=== PATIENT | male | born 1965 | race Caucasian/White ===

== ENCOUNTER → 2016-11-06 | Outpatient (CLI) | payer MEDICAID ==
[2016-11-06 08:50] LABS: Basophils % (A) 1 %; CH 32.2; Eosinophils # (A) 0.1 k/uL (0-0.7); Eosinophils % (A) 2 %; HCT 45.8 % (39.0-53.0); HDW 2.68; HGB 14.9 gm/dL (13.0-17.5); Luc # (Auto) 0.08; Luc % (Auto) 1; Lymphocytes # (A) 1.3 k/uL (1.0-4.8); Lymphocytes % (A) 22 %; MCH 31.1 pg (25.0-35.0); MCHC 32.6 g/dL (31.0-37.0); MCV 95.2 fL (80.0-100.0); Mean Platelet Volume 8.2; Monocytes # (A) 0.4 k/uL (0-1.0); Monocytes % (A) 7 %; Neutrophils # (A) 3.8 k/uL (1.3-7.7); Neutrophils % (A) 67 %; RBC 4.81 m/uL (4.30-5.90); RDW 14.5 % (11.5-15.5); WBC 5.6 k/uL (3.8-10.6); WBC (Perox) 5.55
[2016-11-06 10:00] LABS: Erythrocyte Sedimentation Rate 3 mm/hr (0-15)
[2016-11-06 10:55] LABS: ALT 41 U/L (21-72); AST 18 U/L (17-59); Alkaline Phosphatase 61 U/L (38-126); Anion Gap 12 mmol/L; Blood Urea Nitrogen 22 mg/dL (9-20); C Reactive Protein <5.0 mg/L (<10.0); Calcium 9.2 mg/dL (8.4-10.2); Carbon Dioxide 24 mmol/L (22-30); Chloride 104 mmol/L (98-107); Glucose 94 mg/dL (74-99); Non-African American GFR(MDRD) >60 (>60 ml/min/1.73 sqM); Potassium 4.7 mmol/L (3.5-5.1); Sodium 140 mmol/L (137-145); Total Bilirubin 0.6 mg/dL (0.2-1.3); Total Protein 7.4 g/dL (6.3-8.2)
== END | disposition home or self-care (01) ==
LOC: LABWHC1 08:02
PROVIDERS: ATTEND Internal Medicine Rheumatology
DX: G44.219 Episodic tension-type headache, not intractable (principal); M35.3 Polymyalgia rheumatica; M51.36 Other intervertebral disc degeneration, lumbar region; Z79.899 Other long term (current) drug therapy; Z98.1 Arthrodesis status
CPT/HCPCS: 36415; 80053; 85025; 85652; 86140

== ENCOUNTER → 2017-02-12 | Outpatient (CLI) | payer MEDICAID ==
[2017-02-12 16:46] LABS: Basophils % (A) 1 %; CHCM 34.7; Eosinophils # (A) 0.2 k/uL (0-0.7); Eosinophils % (A) 3 %; HCT 41.8 % (39.0-53.0); HDW 2.85; HGB 13.9 gm/dL (13.0-17.5); Luc # (Auto) 0.08; Luc % (Auto) 2; Lymphocytes # (A) 1.7 k/uL (1.0-4.8); Lymphocytes % (A) 35 %; MCH 31.9 pg (25.0-35.0); MCHC 33.4 g/dL (31.0-37.0); MCV 95.8 fL (80.0-100.0); Mean Platelet Volume 7.4; Monocytes # (A) 0.2 k/uL (0-1.0); Monocytes % (A) 4 %; Neutrophils # (A) 2.7 k/uL (1.3-7.7); Neutrophils % (A) 55 %; RBC 4.36 m/uL (4.30-5.90); RDW 14.2 % (11.5-15.5); WBC 4.8 k/uL (3.8-10.6); WBC (Perox) 5.04
[2017-02-12 17:00] LABS: ALT 28 U/L (21-72); AST 20 U/L (17-59); Alkaline Phosphatase 60 U/L (38-126); Anion Gap 10 mmol/L; Blood Urea Nitrogen 13 mg/dL (9-20); C Reactive Protein <5.0 mg/L (<10.0); Calcium 9.1 mg/dL (8.4-10.2); Carbon Dioxide 24 mmol/L (22-30); Chloride 108 mmol/L (98-107); Glucose 84 mg/dL (74-99); Non-African American GFR(MDRD) >60 (>60 ml/min/1.73 sqM); Potassium 4.1 mmol/L (3.5-5.1); Sodium 142 mmol/L (137-145); Total Bilirubin 0.8 mg/dL (0.2-1.3)
[2017-02-12 20:25] LABS: Erythrocyte Sedimentation Rate 7 mm/hr (0-15)
== END | disposition home or self-care (01) ==
LOC: LABWHC1 16:29
PROVIDERS: ATTEND Internal Medicine Rheumatology
DX: M35.3 Polymyalgia rheumatica (principal); Z79.899 Other long term (current) drug therapy
CPT/HCPCS: 36415; 80053; 85025; 85652; 86140

== ENCOUNTER → 2017-03-27 | Outpatient (CLI) | payer MEDICAID ==
--- NOTE | 2017-03-28 10:53 | MR ---
EXAMINATION TYPE: MR shoulder RT wo con DATE OF EXAM: 03/27/2017 COMPARISON: NONE HISTORY: Pain in right shoulder TECHNIQUE: Multiplanar, multisequence imaging of the right shoulder is performed without contrast. FINDINGS: Rotator Cuff: Abnormal increased signal present within the rotator cuff, partial full-thickness tear is suspected anteriorly. There is abnormal thickening of the rotator cuff, tendinosis. Acromioclavicular Joint: Hypertrophic change at the acromioclavicular joint is present, there is arth ropathy with mass effect on the musculotendinous junction of supraspinatus. Distal acromial spur is p resent. Glenohumeral Joint: Intact, there is marginal spurring of the humeral head Labrum: Abnormal increased signal present within the superior glenoid labrum, findings may be indicat yovany of SLAP lesion Biceps Tendon: The long head of biceps is in normal location within bicipital groove. Bone marrow signal: Pseudocysts present within the humeral head. Other: Fluid signal present in the subacromial subdeltoid bursa. IMPRESSION: Correlate for impingement. Suspicious or partial full-thickness tear of the rotator cuff anteriorly. Additional findings above.
== END | disposition home or self-care (01) ==
LOC: RADMRIMAIN 17:26
PROVIDERS: ATTEND Orthopaedic Surgery
DX: M75.41 Impingement syndrome of right shoulder (principal); M25.511 Pain in right shoulder; M65.811 Other synovitis and tenosynovitis, right shoulder; M19.011 Primary osteoarthritis, right shoulder; M75.81 Other shoulder lesions, right shoulder

== ENCOUNTER → 2017-05-25 | Outpatient (CLI) | payer MEDICAID ==
[2017-05-25 16:18] LABS: Basophils % (A) 1 %; CH 33.5; CHCM 34.6; Eosinophils # (A) 0.2 k/uL (0-0.7); Eosinophils % (A) 3 %; HCT 42.4 % (39.0-53.0); HDW 2.83; HGB 14.3 gm/dL (13.0-17.5); Luc # (Auto) 0.12; Luc % (Auto) 2; Lymphocytes # (A) 2.1 k/uL (1.0-4.8); Lymphocytes % (A) 35 %; MCH 32.8 pg (25.0-35.0); MCHC 33.7 g/dL (31.0-37.0); MCV 97.4 fL (80.0-100.0); Mean Platelet Volume 7.7; Monocytes # (A) 0.3 k/uL (0-1.0); Monocytes % (A) 4 %; Neutrophils # (A) 3.2 k/uL (1.3-7.7); Neutrophils % (A) 55 %; RBC 4.36 m/uL (4.30-5.90); RDW 15.1 % (11.5-15.5); WBC 5.9 k/uL (3.8-10.6); WBC (Perox) 6.25
[2017-05-25 16:34] LABS: ALT 37 U/L (21-72); AST 18 U/L (17-59); Alkaline Phosphatase 66 U/L (38-126); Anion Gap 11 mmol/L; Blood Urea Nitrogen 16 mg/dL (9-20); C Reactive Protein <5.0 mg/L (<10.0); Calcium 9.1 mg/dL (8.4-10.2); Carbon Dioxide 22 mmol/L (22-30); Chloride 108 mmol/L (98-107); Glucose 80 mg/dL (74-99); Non-African American GFR(MDRD) >60 (>60 ml/min/1.73 sqM); Potassium 4.3 mmol/L (3.5-5.1); Sodium 141 mmol/L (137-145); Total Bilirubin 0.6 mg/dL (0.2-1.3); Total Protein 6.7 g/dL (6.3-8.2)
[2017-05-25 18:39] LABS: Erythrocyte Sedimentation Rate 6 mm/hr (0-15)
== END | disposition home or self-care (01) ==
LOC: LABWHC1 16:00
PROVIDERS: ATTEND Internal Medicine Rheumatology
DX: M35.3 Polymyalgia rheumatica (principal); G44.219 Episodic tension-type headache, not intractable; M75.81 Other shoulder lesions, right shoulder; M51.36 Other intervertebral disc degeneration, lumbar region; Z51.81 Encounter for therapeutic drug level monitoring
CPT/HCPCS: 36415; 80053; 85025; 85652; 86140

== ENCOUNTER → 2017-10-22 | Outpatient (CLI) | payer MEDICAID ==
[2017-10-22 08:07] LABS: Basophils # (A) 0.1 k/uL (0-0.2); Basophils % (A) 1 %; Eosinophils # (A) 0.2 k/uL (0-0.7); Eosinophils % (A) 2 %; HCT 45.1 % (39.0-53.0); HGB 14.4 gm/dL (13.0-17.5); Lymphocytes # (A) 1.4 k/uL (1.0-4.8); Lymphocytes % (A) 13 %; MCH 31.4 pg (25.0-35.0); MCV 98.2 fL (80.0-100.0); Macrocytosis Slight; Mean Platelet Volume 7.9; Monocytes # (A) 0.6 k/uL (0-1.0); Monocytes % (A) 6 %; Neutrophils # (A) 8.4 k/uL (1.3-7.7); Neutrophils % (A) 78 %; Platelet Count 229 k/uL (150-450); RBC 4.59 m/uL (4.30-5.90); RDW 15.8 % (11.5-15.5); WBC 10.7 k/uL (3.8-10.6)
[2017-10-22 09:20] LABS: Erythrocyte Sedimentation Rate 8 mm/hr (0-15)
[2017-10-22 09:52] LABS: ALT 40 U/L (21-72); AST 18 U/L (17-59); Albumin 4.3 g/dL (3.5-5.0); Alkaline Phosphatase 64 U/L (38-126); Anion Gap 10 mmol/L; Blood Urea Nitrogen 17 mg/dL (9-20); C Reactive Protein 16.8 mg/L (<10.0); Calcium 9.3 mg/dL (8.4-10.2); Carbon Dioxide 25 mmol/L (22-30); Chloride 105 mmol/L (98-107); Glucose 97 mg/dL (74-99); Potassium 4.6 mmol/L (3.5-5.1); Sodium 140 mmol/L (137-145); Total Bilirubin 0.4 mg/dL (0.2-1.3); Total Protein 7.1 g/dL (6.3-8.2)
== END | disposition home or self-care (01) ==
LOC: LABWHC1 07:49
PROVIDERS: ATTEND Internal Medicine Rheumatology
DX: Z00.01 Encounter for general adult medical examination with abnormal findings (principal); M35.3 Polymyalgia rheumatica; G44.031 Episodic paroxysmal hemicrania, intractable; M12.811 Other specific arthropathies, not elsewhere classified, right shoulder; Z12.5 Encounter for screening for malignant neoplasm of prostate; Z98.1 Arthrodesis status
CPT/HCPCS: 80053; 85652; 85025; 86140; 36415; G0103

== ENCOUNTER → 2017-11-18 | Outpatient (CLI) | payer MEDICAID ==
--- NOTE | 2017-11-18 15:23 | XR ---
EXAMINATION TYPE: XR chest 2V DATE OF EXAM: 11/18/2017 COMPARISON: 10/22/2012 TECHNIQUE: PA and lateral views submitted. HISTORY: Cough FINDINGS: The lungs are clear and there is no pneumothorax, pleural effusion, or focal pneumonia. Hypertrophi c and degenerative change of the spine noted. IMPRESSION: 1. No acute process.
== END | disposition home or self-care (01) ==
LOC: RADXRMAIN 15:04
PROVIDERS: ATTEND Nurse Practitioner Family
DX: R05 Cough (principal)
CPT/HCPCS: 71046

== ENCOUNTER → 2017-12-09 | Outpatient (CLI) | payer MEDICAID ==
--- NOTE | 2017-12-09 21:40 | CT ---
EXAMINATION TYPE: CT chest w con DATE OF EXAM: 12/09/2017 COMPARISON: CT chest January 14, 2013. Two-view chest x-ray November 18, 2017. HISTORY: cough and shortness of breath for [address] DLP: 495.6 mGycm. Automated Exposure Control for Dose Reduction was Utilized. TECHNIQUE: CT scan of the thorax is performed following with IV Contrast, patient injected with 100 mL of Omnipaque 300. FINDINGS: LUNGS: There is mild posterior left apical scarring on axial image 12 now seen. There are stable 4 mm lateral right upper lobe nodule axial image [address] There is dependent atelectasi s and/or some linear scarring posteriorly in both lower lobes. No new nodule or mass is present. Ther e is focal linear scarring or atelectasis in the lingula near diaphragm. No pleural effusion or pneum othorax is identified. Tracheobronchial tree is patent. MEDIASTINUM: There are no greater than 1 cm hilar or mediastinal lymph nodes. No pericardial effusi on is seen. Heart size is upper limits of normal. OTHER: There are stable small hiatal hernia. There is fairly prominent spurring and disc space narrow ing with vacuum disc phenomenon in the visualized upper lumbar spine. IMPRESSION: Stable 4 mm right upper lobe nodule essentially benign or postinflammatory in etiology gi mario near five-year stability. No new suspicious nodules or adenopathy identified.
== END | disposition home or self-care (01) ==
LOC: RADCTMAIN 07:59
PROVIDERS: ATTEND Nurse Practitioner Family
DX: R91.1 Solitary pulmonary nodule (principal); R05 Cough; R06.02 Shortness of breath
CPT/HCPCS: 71260; Q9967

== ENCOUNTER → 2018-01-21 | Outpatient (CLI) | payer MEDICAID ==
[2018-01-21 07:22] LABS: Basophils % (A) 0 %; Eosinophils # (A) 0.2 k/uL (0-0.7); Eosinophils % (A) 4 %; HGB 14.1 gm/dL (13.0-17.5); Lymphocytes # (A) 1.4 k/uL (1.0-4.8); Lymphocytes % (A) 25 %; MCH 31.7 pg (25.0-35.0); MCHC 34.4 g/dL (31.0-37.0); MCV 92.3 fL (80.0-100.0); Mean Platelet Volume 7.4; Monocytes # (A) 0.4 k/uL (0-1.0); Monocytes % (A) 7 %; Neutrophils # (A) 3.6 k/uL (1.3-7.7); Neutrophils % (A) 62 %; Platelet Count 225 k/uL (150-450); RBC 4.44 m/uL (4.30-5.90); RDW 14.4 % (11.5-15.5); WBC 5.8 k/uL (3.8-10.6)
[2018-01-21 10:03] LABS: ALT 48 U/L (21-72); AST 26 U/L (17-59); Albumin 4.1 g/dL (3.5-5.0); Alkaline Phosphatase 69 U/L (38-126); Anion Gap 13 mmol/L; Blood Urea Nitrogen 15 mg/dL (9-20); C Reactive Protein 6.9 mg/L (<10.0); Calcium 9.2 mg/dL (8.4-10.2); Carbon Dioxide 24 mmol/L (22-30); Chloride 106 mmol/L (98-107); Glucose 106 mg/dL (74-99); Potassium 4.6 mmol/L (3.5-5.1); Sodium 143 mmol/L (137-145); Total Bilirubin 0.2 mg/dL (0.2-1.3); Total Protein 6.6 g/dL (6.3-8.2)
[2018-01-21 10:10] LABS: Erythrocyte Sedimentation Rate 6 mm/hr (0-15)
== END | disposition home or self-care (01) ==
LOC: LABWHC1 06:41
PROVIDERS: ATTEND Internal Medicine Rheumatology
DX: M35.3 Polymyalgia rheumatica (principal); M12.811 Other specific arthropathies, not elsewhere classified, right shoulder; Z51.81 Encounter for therapeutic drug level monitoring
CPT/HCPCS: 36415; 80053; 85025; 85652; 86140

== ENCOUNTER → 2018-09-08 | Outpatient (CLI) | payer MEDICAID ==
[2018-09-08 07:32] LABS: Basophils % (A) 1 %; Eosinophils # (A) 0.2 k/uL (0-0.7); Eosinophils % (A) 5 %; HCT 43.6 % (39.0-53.0); Lymphocytes % (A) 45 %; MCH 30.1 pg (25.0-35.0); Mean Platelet Volume 7.2; Monocytes # (A) 0.4 k/uL (0-1.0); Monocytes % (A) 9 %; Neutrophils # (A) 1.7 k/uL (1.3-7.7); Neutrophils % (A) 37 %; Platelet Count 214 k/uL (150-450); RBC 4.64 m/uL (4.30-5.90); RDW 13.3 % (11.5-15.5); WBC 4.4 k/uL (3.8-10.6)
[2018-09-08 09:42] LABS: Erythrocyte Sedimentation Rate 4 mm/hr (0-15)
[2018-09-08 12:25] LABS: ALT 19 U/L (10-49); AST 17 U/L (14-35); Albumin/Globulin Ratio 2.33 (1.20-2.10); Alkaline Phosphatase 71 U/L (41-126); C Reactive Protein <0.4 mg/dL (0.0-0.8); Calcium 8.9 mg/dL (8.7-10.3); Carbon Dioxide 24.4 mmol/L (21.6-31.8); Chloride 109 mmol/L (96-109); Globulin 1.8 g/dL (2.1-3.7); Glucose 103 mg/dL (70-110); Potassium 4.4 mmol/L (3.5-5.5); Sodium 140 mmol/L (135-145); Total Bilirubin 0.2 mg/dL (0.3-1.2)
== END | disposition home or self-care (01) ==
LOC: LABWHC1 06:41
PROVIDERS: ATTEND Internal Medicine Rheumatology
DX: M35.3 Polymyalgia rheumatica (principal); M12.811 Other specific arthropathies, not elsewhere classified, right shoulder; M51.36 Other intervertebral disc degeneration, lumbar region; H91.93 Unspecified hearing loss, bilateral
CPT/HCPCS: 36415; 80053; 85025; 85652; 86140

== ENCOUNTER → 2018-11-25 | Outpatient (CLI) | payer MEDICAID ==
[2018-11-25 07:09] LABS: Basophils % (A) 1 %; Eosinophils # (A) 0.2 k/uL (0-0.7); Eosinophils % (A) 4 %; HCT 43.5 % (39.0-53.0); HGB 14.7 gm/dL (13.0-17.5); Lymphocytes # (A) 1.6 k/uL (1.0-4.8); Lymphocytes % (A) 36 %; MCH 32.1 pg (25.0-35.0); MCHC 33.8 g/dL (31.0-37.0); Mean Platelet Volume 7.4; Monocytes # (A) 0.3 k/uL (0-1.0); Monocytes % (A) 8 %; Neutrophils # (A) 2.1 k/uL (1.3-7.7); Neutrophils % (A) 50 %; Platelet Count 229 k/uL (150-450); RBC 4.58 m/uL (4.30-5.90); RDW 13.8 % (11.5-15.5); WBC 4.3 k/uL (3.8-10.6)
[2018-11-25 09:03] LABS: Erythrocyte Sedimentation Rate 11 mm/hr (0-15)
[2018-11-25 12:33] LABS: Albumin 4.4 g/dL (3.80-4.90); C Reactive Protein 0.9 mg/dL (0.0-0.8); Calcium 8.9 mg/dL (8.7-10.3); Globulin 2.2 g/dL (1.6-3.3); LDL Cholesterol,Calculated 187.8 mg/dL (0.0-131.0); Potassium 4.3 mmol/L (3.5-5.5); Total Bilirubin 0.2 mg/dL (0.3-1.2); Total Protein 6.6 g/dL (6.2-8.2); VLDL Calculation 21.2 mg/dL (5.00-40.00)
== END | disposition home or self-care (01) ==
LOC: LABWHC1 06:42
PROVIDERS: ATTEND Family Medicine
DX: Z00.01 Encounter for general adult medical examination with abnormal findings (principal); M35.3 Polymyalgia rheumatica; E78.2 Mixed hyperlipidemia; Z12.5 Encounter for screening for malignant neoplasm of prostate; Z91.030 Bee allergy status
CPT/HCPCS: 80061; 80053; 85652; 85025; 86140; 36415; G0103

== ENCOUNTER 2019-08-23 11:36 | Day surgery (SDC) | payer MEDICAID ==
[2019-08-18 12:35] VITALS: BMI 24.0
[~2019-08-23 11:36] MED LIST: LACTATED RINGERS 1,000 ML IV SCH
[2019-08-23 11:55] VITALS: TEMP 97.4
[2019-08-23] MEDS ORDERED: LIDOCAINE 1% 20 ML VIAL (10MG/ML) FOR IV START INTRADERMA ONE (11:58)
[2019-08-23] MEDS ORDERED: LIDOCAINE 1% INJ 10MG/ML (20 ML MDV) ONE (13:07)
[2019-08-23] MEDS ORDERED: PROPOFOL 10 MG/ML 20 ML VIAL IV ONE (13:07)
--- NOTE | 2019-08-23 13:45 | P.PCN ---
Date of Procedure: 08/23/19 Description of Procedure: BRIEF HISTORY: Patient is a 54-year-old, pleasant, male with a known history of gastroesophageal reflux disease and Brito's esophagus initially diagnosed in 2014 who was seen in the outpatient setting for complaints of heartburn and intermittent dysphagia to dry solid foods as well as the sensation of globus. The patient had been off of omeprazole therapy since 2014 and was reinitiated approximately one month ago. He continues to have symptoms. PROCEDURE PERFORMED: Esophagogastroduodenoscopy with biopsy. PREOPERATIVE DIAGNOSIS: GERD, Brito's esophagus, esophageal dysphagia. ESTIMATED BLOOD LOSS: Minimal. IV sedation per anesthesia. PROCEDURE: After informed consent was obtained, the patient was brought into the endoscopy unit. IV sedation was administered by Anesthesia under continuous monitoring. Initially the Olympus GIF-190 video endoscope was inserted into the mouth. Esophagus intubated without any difficulty. It was gradually advanced into the stomach and duodenum and carefully examined. The bulb and the second part of the duodenum appeared normal, with biopsies taken. The scope at this time was withdrawn to the stomach, adequately insufflated with air, and upon careful examination, mucosa of the antrum, body, cardia and the fundus appeared grossly normal except for some patchy erythema in the antrum suggestive of mild antritis with biopsies of the antrum and body taken. The scope was then withdrawn into the esophagus. The GE junction was located at 39 cm from the incisors with a 2 cm hiatal hernia noted. 3 cm of salmon-colored mucosa consistent with prior history of Brito's esophagus noted in the distal esophagus which was vigorously biopsied. A small 1 cm esophageal nodule approximately 36 cm from the incisors was noted and biopsied. The esophagus otherwise appeared normal. The patient tolerated the procedure well. IMPRESSION: 1. Brito's esophagus, distal esophagus biopsied. 2. Distal esophageal nodule approximately 36 cm from the incisors biopsied. 3. Mild gastritis antrum body biopsy 4. Biopsies of the duodenum. 5. Small hiatal hernia. RECOMMENDATIONS: The findings of this examination were discussed with the patient and his . Okay to resume diet and medications. Continue omeprazole therapy. Await pathology from biopsies. Follow up in gastroenterology clinic as previously scheduled. Pending pathology patient may require referral to tertiary center for further intervention by the advanced endoscopy service.
[2019-08-23 13:58] VITALS: BP 117/77; PULSE 63; RESP 20
== END 2019-08-23 14:10 | disposition home or self-care (01) ==
LOC: ORWHC2ENDO 11:36
PROVIDERS: ATTEND Internal Medicine
DX: K22.70 Barrett's esophagus without dysplasia (principal); K29.51 Unspecified chronic gastritis with bleeding; K44.9 Diaphragmatic hernia without obstruction or gangrene; K21.9 Gastro-esophageal reflux disease without esophagitis; E78.5 Hyperlipidemia, unspecified; M19.90 Unspecified osteoarthritis, unspecified site; H91.90 Unspecified hearing loss, unspecified ear; Z87.891 Personal history of nicotine dependence; Z79.899 Other long term (current) drug therapy; Z87.81 Personal history of (healed) traumatic fracture; Z98.890 Other specified postprocedural states
CPT/HCPCS: 88305; 43239; J2001; J2704

== ENCOUNTER → 2019-11-17 | Outpatient (CLI) | payer MEDICAID ==
[2019-11-17 15:36] LABS: Thyroid Peroxidase Antibodies 30.9 U/mL (0.0-60.0)
[2019-11-17 16:21] LABS: C Reactive Protein <0.4 mg/dL (0.0-0.8); Rheumatoid Factor, Qnt 6 IU/mL (0-15)
[2019-11-17 16:57] LABS: Anti-DNA, DS unit <1.0 IU/mL; Anti-Smith Ab Interp NEGATIVE (NEGATIVE); Cyclic Citrull Pep IgG Unit 0.7 U/mL; Cyclic Citrullinated Pep IgG NEGATIVE (NEGATIVE); DNA Double-Stranded NEGATIVE (NEGATIVE)
[2019-11-18 13:14] LABS: C-ANCA <1:20 Titer (<1:20)
== END | disposition home or self-care (01) ==
LOC: LABWHC1 10:44
PROVIDERS: ATTEND Internal Medicine Rheumatology
DX: M25.50 Pain in unspecified joint (principal); M25.511 Pain in right shoulder; G89.29 Other chronic pain; Z87.39 Personal history of other diseases of the musculoskeletal system and connective tissue
CPT/HCPCS: 36415; 85652; 86038; 86140; 86160; 86200; 86225; 86235; 86255; 86376; 86431; 86800

== ENCOUNTER → 2019-11-17 | Outpatient (CLI) | payer MEDICAID ==
--- NOTE | 2019-11-17 12:15 | XR ---
EXAMINATION TYPE: XR hand complete bilateral DATE OF EXAM: 11/17/2019 CLINICAL HISTORY: Polyarthralgia TECHNIQUE: Frontal, lateral and oblique images of the bilateral hands were obtained. COMPARISON: Bilateral hand x-rays dated 03/25/2016 FINDINGS: There is no acute fracture/dislocation evident in either hand. Old healed fracture deformi ty of the fifth metacarpal the right hand is again seen. Mild progression in degree of arthropathy of the third distal interphalangeal joints bilaterally with joint space narrowing and small marginal os teophytes. Changes are now seen in the second distal interphalangeal joint bilaterally as well as the fifth right proximal interphalangeal joint. On the right there is blunting of the ulnar styloid that appears new from the prior. Osteophytic spurring and slight narrowing of the first metacarpal phalan geal joints bilaterally are also redemonstrated. The joint spaces in the both hand appear aligned. T he overlying soft tissue appears unremarkable. IMPRESSION 1. Mild progression in arthropathy of the third distal interphalangeal joints and first carpometacarp al joints of the hands bilaterally now involvement of the second distal interphalangeal joints bilate rally, right ulnar styloid, and fifth proximal interphalangeal joint. Distribution may be seen on the basis of mixed arthropathy as the majority of the involved joints indicate osteoarthropathy however the blunting of the radial styloid on the right raises suspicion for rheumatoid arthropathy. 2. No acute fracture or dislocation in either hand.
--- NOTE | 2019-11-17 12:21 | XR ---
EXAMINATION TYPE: XR shoulder limited LT DATE OF EXAM: 11/17/2019 CLINICAL HISTORY: Left shoulder pain TECHNIQUE: 2 views of the left shoulder are obtained. COMPARISON: None. FINDINGS: There is no acute fracture/dislocation evident in the left shoulder. The acromioclavicula r and glenohumeral joint spaces appear within normal limits. The visualized ribs are intact and unre markable. IMPRESSION: There is no acute fracture or dislocation in the left shoulder.
--- NOTE | 2019-11-17 12:25 | XR ---
EXAMINATION TYPE: XR knee complete bilateral DATE OF EXAM: 11/17/2019 CLINICAL HISTORY: Polyarthropathy. TECHNIQUE: Three views of the bilateral knees were obtained. COMPARISON: None. FINDINGS: There is no acute fracture/dislocation evident in either knee. There is medial compartment joint space narrowing of the left knee with small the tricompartmental marginal osteophytes on the l eft and bicompartmental on the right involving the lateral and patellofemoral compartments. Hyperdens e fragments are seen of the lateral and anterior soft tissues (3 in number measuring up to 3 mm) on t he right. Prior ACL repair is seen on the left. No sizable suprapatellar joint effusion bilaterally. Extensor mechanism is grossly intact radiographically. IMPRESSION: 1. Moderate tricompartmental arthropathy in the left and mild on the right. 2. No acute fracture or dislocation in either knee. 3. There are 3 punctate radiopaque densities in the anterior lateral subcutaneous tissues at the infe rior margin of the right patella that could represent small foreign bodies.
== END | disposition home or self-care (01) ==
LOC: RADXRMAIN 11:00
PROVIDERS: ATTEND Internal Medicine Rheumatology
DX: M25.512 Pain in left shoulder (principal); M12.841 Other specific arthropathies, not elsewhere classified, right hand; M12.862 Other specific arthropathies, not elsewhere classified, left knee; M12.861 Other specific arthropathies, not elsewhere classified, right knee

== ENCOUNTER → 2019-12-08 | Outpatient (CLI) | payer MEDICAID ==
--- NOTE | 2019-12-08 07:18 | XR ---
EXAMINATION TYPE: XR sacroiliac joint comp BILAT DATE OF EXAM: 12/08/2019 CLINICAL HISTORY: Bilateral pelvic pain TECHNIQUE: 3 views of the bilateral sacroiliac joints were obtained. COMPARISON: 03/25/2016 FINDINGS: There is no acute fracture/dislocation evident in the visualized portions of the pelvis. T here is surgical fusion of the lumbosacral junction. Sacroiliac joints are symmetric. Very mild iliac sided sclerosis. No sacroiliac joint space widening. Minimal degenerative change of the hips. IMPRESSION: There is no acute fracture or dislocation in the visualized pelvis. Mild symmetric arthr opathy of the sacroiliac joints.
== END | disposition home or self-care (01) ==
LOC: RADXRMAIN 06:26
PROVIDERS: ATTEND Internal Medicine Rheumatology
DX: M12.852 Other specific arthropathies, not elsewhere classified, left hip (principal); M12.851 Other specific arthropathies, not elsewhere classified, right hip
CPT/HCPCS: 72202

== ENCOUNTER → 2020-02-15 | Outpatient (CLI) | payer MEDICAID | END | disposition home or self-care (01) | LOC: LABWHC1 08:35 | PROVIDERS: ATTEND Internal Medicine Cardiovascular Disease | DX: U07.1 COVID-19 (principal) | CPT/HCPCS: 87635 ==

== ENCOUNTER → 2020-02-17 | Day surgery (SDC) | payer MEDICAID ==
[2020-02-15 14:24] VITALS: BMI 33.7
[~2020-02-17] MED LIST changes: +ALPRAZolam 0.25 MG TAB PO PRN; +ALPRAZolam 0.5 MG TAB PO PRN; +ASPIRIN 325 MG TAB PO ONE; +ATORVASTATIN 80 MG TAB PO ONE; +HEPARIN SODIUM 1,000 UN/ML (10ML VL) IV ONE; +IOPAMIDOL-370 125ML BTL INJ ONE; -LACTATED RINGERS 1,000 ML IV SCH; +LIDOCAINE 1% INJ 10MG/ML (20 ML MDV) SQ ONE; +MIDAZOLAM 2 MG/2 ML VIAL IV ONE; +NITROGLYCERIN SL TABS 0.4 MG TAB SUBLINGUAL PRN; +RX INFO: IV CONTRAST WAS GIVEN 1 EACH MISC MISCELLANE PRN; +SODIUM CHLORIDE 0.9% 1,000 ML IV ONE; +SODIUM CHLORIDE 0.9% 1,000 ML IV SCH; +SODIUM CHLORIDE 0.9% 1,000 ML in EMPTY BAG 1 BAG IV ONE; +VERAPAMIL SYRINGE (5 MG/10 ML) INTRAARTER ONE; +fentaNYL (PF) 50 MCG/ML 2 ML AMP IV ONE
[2020-02-17 06:51] VITALS: RESP 16; TEMP 97.7
[2020-02-17 07:16] LABS: Basophils % (A) 1 %; Eosinophils # (A) 0.2 k/uL (0-0.7); Eosinophils % (A) 4 %; HCT 43.5 % (39.0-53.0); HGB 14.7 gm/dL (13.0-17.5); Lymphocytes # (A) 1.8 k/uL (1.0-4.8); Lymphocytes % (A) 32 %; MCH 31.8 pg (25.0-35.0); MCHC 33.8 g/dL (31.0-37.0); Mean Platelet Volume 8.4; Monocytes # (A) 0.3 k/uL (0-1.0); Monocytes % (A) 6 %; Neutrophils # (A) 3.1 k/uL (1.3-7.7); Neutrophils % (A) 56 %; Platelet Count 211 k/uL (150-450); RBC 4.63 m/uL (4.30-5.90); RDW 13.4 % (11.5-15.5); WBC 5.6 k/uL (3.8-10.6)
[2020-02-17 07:21] LABS: African American GFR (CKD) >90 (>60 ml/min/1.73 sqM); Anion Gap 7 mmol/L; Blood Urea Nitrogen 18 mg/dL (9-20); Carbon Dioxide 24 mmol/L (22-30); Chloride 108 mmol/L (98-107); Glucose 105 mg/dL (74-99); Non-African American GFR(CKD) >90 (>60 ml/min/1.73 sqM); Sodium 139 mmol/L (137-145)
[2020-02-17 07:28] LABS: Potassium 4.5 mmol/L (3.5-5.1)
--- NOTE | 2020-02-17 08:25 | P.CARDCATH ---
Date of Procedure: 02/17/20 Preoperative Diagnosis: Chest pain and positive stress test Postoperative Diagnosis: Minimal coronary artery disease Procedure(s) Performed: Left heart catheterization without left ventriculography Description of Procedure: HISTORY: This is a 54-year-old gentleman with history of smoking and family history of ischemic heart disease and has been experiencing chest and shoulder pains. Patient was evaluated by stress test which showed suspicious ischemia in the inferior wall. In view of ongoing symptoms and positive stress test, patient is advised to have cardiac catheterization CONSENT:I have discussed the risks, benefits and alternative therapies for the above-mentioned procedure and for both sedation/analgesia as well as necessary blood product administration, if indicated, as they pertain to this patient. The patient has indicated understanding and acceptance of the risks and procedures discussed. PROCEDURE: Patient was brought to the lab in a fasting state. Patient was given some IV sedation. The right groin is infiltrated with lidocaine and right radial artery was entered using Seldinger technique. A 6-Thai catheter was left in place and selective coronary arteriography was performed. Patient tolerated the procedure well. TR band was applied for hemostasis. No immediate complications were noted and patient was transferred to [facility] in a stable condition Conscious Sedation: Versed 1mg Fentanyl 50 g Duration 22minutes HEMODynamics: The aortic pressure is 110/70 . The left ventricle end-diastolic pressure is 12. There was no gradient across the aortic valve SELECTIVE CORONARY ARTERIOGRAPHY: LEFT MAIN: NORMAL LENGTH AND PATENT THE LEFT ANTERIOR DESCENDING CORONARY ARTERY: This is a faint caliber vessel giving rise to a faint caliber diagonal branch. The LAD had mild disease in midportion. No critical lesions noted THE LEFT CIRCUMFLEX AND IS CORONARY ARTERY: This is a dominant vessel giving rise to good-sized PDA and PLV branches. The circumflex coronary artery and its branches are free of occlusive disease. THE RIGHT CORONARY ARTERY : This is a nondominant ve ssel. Free of any occlusive disease LEFT VENTRICULOGRAPHY: FINAL IMPRESSION: Minimal coronary artery disease PROGNOSIS: Medical therapy and this factor modification
[2020-02-17 13:15] VITALS: BP 128/67; PULSE 48
== END ==
LOC: CATHCVL 06:28
PROVIDERS: ATTEND Internal Medicine Cardiovascular Disease
DX: I25.10 Atherosclerotic heart disease of native coronary artery without angina pectoris (principal); Z87.891 Personal history of nicotine dependence; E78.5 Hyperlipidemia, unspecified; R94.39 Abnormal result of other cardiovascular function study; Z82.49 Family history of ischemic heart disease and other diseases of the circulatory system
CPT/HCPCS: 93458; 80048; 85025; C1894; J2250; J2001; J3010; J1644; Q9967

== ENCOUNTER → 2020-03-09 | Outpatient (CLI) | payer MEDICAID ==
--- NOTE | 2020-03-09 14:23 | US ---
EXAMINATION TYPE: US gallbladder DATE OF EXAM: 03/09/2020 COMPARISON: NONE CLINICAL HISTORY: R10.9 Abdominal Pain. Shoulder pain EXAM MEASUREMENTS: Liver Length: 14.5 cm Gallbladder Wall: 0.2 cm CBD: 0.4 cm Right Kidney: 10.3 x 6.1 x 6.0 cm Pancreas: Obscured by bowel gas Liver: Increased attenuation Gallbladder: Contracted gallbladder. No shadowing stones was seen. Evidence for sonographic Mart's sign: neg CBD: wnl Right Kidney: No hydronephrosis or masses seen Suboptimal evaluation of pancreas on images saved secondary to shadowing from overlying bowel gas per technologist. Visualized liver is slightly heterogeneous without suspicious mass or ductal dilatatio n. No shadowing mobile gallstones slightly contracted gallbladder IMPRESSION: No shadowing mobile gallstones or ultrasound evidence for acute cholecystitis.
== END | disposition home or self-care (01) ==
LOC: RADUSWWP 13:41
PROVIDERS: ATTEND Internal Medicine Cardiovascular Disease
DX: R10.9 Unspecified abdominal pain (principal)
CPT/HCPCS: 76705

== ENCOUNTER → 2020-05-18 | Outpatient (CLI) | payer MEDICAID ==
[2020-05-18 10:54] LABS: Basophils % (A) 1 %; Eosinophils # (A) 0.3 k/uL (0-0.7); Eosinophils % (A) 3 %; HCT 45.7 % (39.0-53.0); HGB 14.9 gm/dL (13.0-17.5); Lymphocytes # (A) 1.7 k/uL (1.0-4.8); Lymphocytes % (A) 20 %; MCH 30.9 pg (25.0-35.0); MCHC 32.7 g/dL (31.0-37.0); MCV 94.4 fL (80.0-100.0); Mean Platelet Volume 7.9; Monocytes # (A) 0.4 k/uL (0-1.0); Monocytes % (A) 5 %; Neutrophils # (A) 5.9 k/uL (1.3-7.7); Neutrophils % (A) 70 %; Platelet Count 208 k/uL (150-450); RBC 4.84 m/uL (4.30-5.90); RDW 13.7 % (11.5-15.5); WBC 8.4 k/uL (3.8-10.6)
[2020-05-18 11:06] LABS: ALT 35 U/L (4-49); AST 26 U/L (17-59); African American GFR (CKD) >90 (>60 ml/min/1.73 sqM); Albumin 4.4 g/dL (3.5-5.0); Alkaline Phosphatase 86 U/L (38-126); Anion Gap 7 mmol/L; Blood Urea Nitrogen 13 mg/dL (9-20); C Reactive Protein 7.3 mg/L (<10.0); Calcium 9.3 mg/dL (8.4-10.2); Carbon Dioxide 25 mmol/L (22-30); Chloride 107 mmol/L (98-107); Glucose 88 mg/dL (74-99); Non-African American GFR(CKD) >90 (>60 ml/min/1.73 sqM); Potassium 4.2 mmol/L (3.5-5.1); Sodium 139 mmol/L (137-145); Total Bilirubin 0.6 mg/dL (0.2-1.3)
[2020-05-18 12:06] LABS: Cholesterol 176 mg/dL (<200); HDL Cholesterol 40 mg/dL (40-60); LDL Cholesterol,Calculated 122 mg/dL (0-99); Triglycerides 69 mg/dL (<150)
--- NOTE | 2020-05-18 12:20 | NM ---
EXAMINATION TYPE: NM hepatobiliary w EF DATE OF EXAM: 05/18/2020 COMPARISON: Ultrasound 03/09/2020 HISTORY: 55-year-old male chest pain, R07.89 TECHNIQUE: After the intravenous administration of 5.3 mCi Tc 99m Mebrofenin hepatobiliary scintigrap hy is performed. Immediate images post injection. FINDINGS: There is satisfactory initial accumulation of tracer by the liver. The gallbladder and small bowel a re both visualized at the 15 minute time point. At one hour 8 ounces of oral ensure plus is given to mimic CCK and gallbladder ejection fraction is calculated at 25 %, which is decreased. IMPRESSION: Diminished gallbladder ejection fraction may be seen in the setting of chronic cholecystitis or bilia ry dyskinesia. The latter is favored given the normal sonographic appearance of the gallbladder on 03/09/2020.
[2020-05-18 12:47] LABS: Erythrocyte Sedimentation Rate 7 mm/hr (0-15)
== END | disposition home or self-care (01) ==
LOC: RADNMMAIN 10:00
PROVIDERS: ATTEND Internal Medicine Gastroenterology
DX: R07.89 Other chest pain (principal)
CPT/HCPCS: 84153; 80061; 80053; 85652; 85025; 86140; 78226; A9537

== ENCOUNTER → 2020-07-05 | Outpatient (CLI) | payer MEDICAID | END | disposition home or self-care (01) | LOC: LABPAT 08:01 | PROVIDERS: ATTEND Surgery | DX: U07.1 COVID-19 (principal) | CPT/HCPCS: U0003; C9803 ==

== ENCOUNTER → 2020-07-10 | Outpatient (CLI) | payer MEDICAID ==
[2020-07-10 16:49] LABS: Albumin 4.6 g/dL (3.5-5.0); Bilirubin, Delta 0.1 mg/dL (0.0-0.2); Bilirubin,Unconjugated 0.4 mg/dL (0.0-1.1); Total Bilirubin 0.5 mg/dL (0.2-1.3); Total Protein 7.3 g/dL (6.3-8.2)
== END | disposition home or self-care (01) ==
LOC: LABPAT 16:15
PROVIDERS: ATTEND Surgery
DX: Z01.818 Encounter for other preprocedural examination (principal)
CPT/HCPCS: 36415; 80076

== ENCOUNTER 2020-07-13 09:16 | Day surgery (SDC) | payer MEDICAID ==
[2020-07-09 15:51] VITALS: BMI 35.4
[~2020-07-13 09:16] MED LIST changes: -ALPRAZolam 0.25 MG TAB PO PRN; -ALPRAZolam 0.5 MG TAB PO PRN; -ASPIRIN 325 MG TAB PO ONE; -ATORVASTATIN 80 MG TAB PO ONE; +DEXAMETHASONE SOD PHOSPHATE 10 MG/ML 1 ML VIAL IV ONE; -HEPARIN SODIUM 1,000 UN/ML (10ML VL) IV ONE; +HEPARIN SODIUM,PORCINE 5,000 UNIT/ML 1 ML VIAL SQ ONE; -IOPAMIDOL-370 125ML BTL INJ ONE; +LACTATED RINGERS 1,000 ML IV SCH; +LIDOCAINE 1% (10MG/ML) FOR IV START INTRADERMA PRN; -LIDOCAINE 1% INJ 10MG/ML (20 ML MDV) SQ ONE; -MIDAZOLAM 2 MG/2 ML VIAL IV ONE; -NITROGLYCERIN SL TABS 0.4 MG TAB SUBLINGUAL PRN; +ONDANSETRON 4 MG/2 ML VIAL IVP ONE; -RX INFO: IV CONTRAST WAS GIVEN 1 EACH MISC MISCELLANE PRN; +SCOPOLAMINE 1.5MG/72HR PATCH TRANSDERM ONE; -SODIUM CHLORIDE 0.9% 1,000 ML IV ONE; -SODIUM CHLORIDE 0.9% 1,000 ML IV SCH; -SODIUM CHLORIDE 0.9% 1,000 ML in EMPTY BAG 1 BAG IV ONE; -VERAPAMIL SYRINGE (5 MG/10 ML) INTRAARTER ONE; -fentaNYL (PF) 50 MCG/ML 2 ML AMP IV ONE
[2020-07-13 10:04] VITALS: RESP 16; TEMP 798.9
[2020-07-13] MEDS ORDERED: fentaNYL (PF) 50 MCG/ML 2 ML AMP ONE (10:58)
[2020-07-13] MEDS ORDERED: LIDOCAINE 1% INJ 10MG/ML (20 ML MDV) ONE (10:58)
[2020-07-13] MEDS ORDERED: SUCCINYLCHOLINE CHLORIDE 100 MG/5 ML SYR IV ONE (10:58)
[2020-07-13] MEDS ORDERED: NEOSTIGMINE 1 MG/ML 10 ML VIAL ONE (10:58)
[2020-07-13] MEDS ORDERED: ROCURONIUM 10 MG/ML (10 ML VIAL) IV ONE (10:58)
[2020-07-13] MEDS ORDERED: HYDROmorphone (PF) 1 MG/ML ONE (10:58)
[2020-07-13] MEDS ORDERED: MIDAZOLAM 2 MG/2 ML VIAL ONE (10:58)
[2020-07-13] MEDS ORDERED: PROPOFOL 10 MG/ML 20 ML VIAL IV ONE (10:58)
[2020-07-13] MEDS ORDERED: KETOROLAC 15 MG/ML 1 ML VIAL ONE (10:58)
[2020-07-13] MEDS ORDERED: GLYCOPYRROLATE 0.2 MG/ML 2 ML VIAL ONE (10:58)
[2020-07-13] MEDS ORDERED: LIDOCAINE 1%-EPI 1:100,000 20 ML VIAL SQ ONE ×2 (11:30)
[2020-07-13] MEDS ORDERED: LACTATED RINGERS 1,000 ML IV ONE (12:04)
[2020-07-13] MEDS: HYDROmorphone 0.5 MG/0.5 ML SYRINGE IVP PRN ×2 (12:18→12:25)
--- NOTE | 2020-07-13 12:19 | P.OP ---
Date of Procedure: 07/13/20 Preoperative Diagnosis: Biliary dyskinesia Postoperative Diagnosis: Biliary dyskinesia Procedure(s) Performed: Laparoscopic cholecystectomy Anesthesia: MILLIE Surgeon: Drea Han Pathology: other (Gallbladder) Condition: stable Disposition: same day Indications for Procedure: 55-year-old male presented secondary to plan for elective cholecystectomy. He has had recent abdominal pain for about 6 months in the right upper quadrant. On workup, he was found to have biliary dyskinesia. He was explained the risks, benefits and alternatives to the procedure and did provide consent prior to attending the operating suite. Operative Findings: Distended gallbladder Description of Procedure: The patient was brought to the operating suite and placed in supine position on operating table. Sedation was provided by anesthesia and the patient underwent endotracheal intubation. The patient was then prepped and draped in regular sterile fashion. A infraumbilical incision was made dissection was carried to the fascia and the fascia was incised and a 11 mm trocar was placed. Pneumoperitoneum was achieved. 3 additional 5 mm ports were placed. 2 were placed in the right upper quadrant and one was placed in the epigastric region. The gallbladder was then grasped and retracted. Dissection was carried along the infundibulum of the gallbladder and the cystic duct and cystic artery were clearly visualized. The cystic duct and cystic artery were skeletonized. A critical view was noted. 2 clips were placed proximally and the cystic duct and one was placed distally and the cystic duct was ligated. 2 clips were placed proximally on the cystic artery and one was placed distally and cystic artery was ligated. The gallbladder was then dissected from the gallbladder fossa using cautery. Hemostasis was noted to be maintained. The gallbladder was then placed in an Endo Catch bag and removed from the abdomen from the infra umbilical incision site. Copious muss irrigation was placed in the right upper quadrant and suctioned. At this point the infra umbilical incision site was closed under direct visualization using a Ector-Brennen device and an 0 Vicryl suture. Pneumoperitoneum was released and all ports removed from the abdomen. All skin incisions were closed with 4-0 Vicryl subcuticular suture. The patient was awakened in the operative suite and taken to postanesthesia care unit in stable condition.
[2020-07-13] MEDS ORDERED: HYDROcodone/APAP 5-325MG 1 EACH TAB ONE (13:13)
[2020-07-13] MEDS ORDERED: HYDROcodone/APAP 5-325MG 1 EACH TAB PO ONE (13:17)
[2020-07-13 13:43] VITALS: BP 129/87; PULSE 70
== END 2020-07-13 14:11 | disposition home or self-care (01) ==
LOC: OR 09:16
PROVIDERS: ATTEND Surgery
DX: K81.1 Chronic cholecystitis (principal); K21.9 Gastro-esophageal reflux disease without esophagitis; M19.90 Unspecified osteoarthritis, unspecified site; E78.00 Pure hypercholesterolemia, unspecified; Z98.890 Other specified postprocedural states; Z82.49 Family history of ischemic heart disease and other diseases of the circulatory system; Z87.891 Personal history of nicotine dependence; Z79.82 Long term (current) use of aspirin; Z79.899 Other long term (current) drug therapy
CPT/HCPCS: 88304; 47562; J2250; J1644; J1100; J2710; J0690; J2405; J2001; J3010; J1170 ×2; J1885; J0330; J2704

== ENCOUNTER → 2020-11-19 | Outpatient (CLI) | payer MEDICAID ==
[2020-11-19 20:22] LABS: HCT 43.2 % (39.6-50.0); HGB 14.4 g/dL (13.0-17.0); MCH 32.7 pg (27.0-32.0); MCHC 33.3 g/dL (32.0-37.0); Mean Platelet Volume 11.7 fL (9.5-12.2); Platelet Count 218 X 10*3/uL (140-440); RBC 4.41 X 10*6/uL (4.40-5.60); RDW 14.7 % (11.5-14.5); WBC 4.72 X 10*3/uL (4.50-10.00)
[2020-11-19 20:48] LABS: ALT 39 U/L (10-49); AST 21 U/L (14-35); African American GFR (CKD) 115.7 (60.0-200.0); C Reactive Protein <0.4 mg/dL (0.0-0.8); Non-African American GFR(CKD) 99.9 (60.0-200.0)
[2020-11-19 22:55] LABS: Erythrocyte Sedimentation Rate 4 mm/Hr (0-20)
== END | disposition home or self-care (01) ==
LOC: LABWHC1 10:02
PROVIDERS: ATTEND Internal Medicine Rheumatology
DX: Z09 Encounter for follow-up examination after completed treatment for conditions other than malignant neoplasm (principal); Z87.39 Personal history of other diseases of the musculoskeletal system and connective tissue
CPT/HCPCS: 36415; 82040; 82565; 84450; 84460; 84520; 85027; 85652; 86140

== ENCOUNTER 2020-12-25 10:03 | Day surgery (SDC) | payer BC, MEDICAID ==
[2020-12-20 13:52] VITALS: BMI 33.5
[~2020-12-25 10:03] MED LIST changes: -DEXAMETHASONE SOD PHOSPHATE 10 MG/ML 1 ML VIAL IV ONE; -HEPARIN SODIUM,PORCINE 5,000 UNIT/ML 1 ML VIAL SQ ONE; -LIDOCAINE 1% (10MG/ML) FOR IV START INTRADERMA PRN; -ONDANSETRON 4 MG/2 ML VIAL IVP ONE; -SCOPOLAMINE 1.5MG/72HR PATCH TRANSDERM ONE
[2020-12-25] MEDS ORDERED: LIDOCAINE 1% (10MG/ML) FOR IV START INTRADERMA ONE (10:56)
[2020-12-25 10:59] VITALS: RESP 16; TEMP 97.3
[2020-12-25] MEDS ORDERED: PROPOFOL 10 MG/ML 20 ML VIAL IV ONE (11:32)
[2020-12-25] MEDS ORDERED: LIDOCAINE 1% INJ 10MG/ML (20 ML MDV) ONE (11:32)
[2020-12-25 12:21] VITALS: BP 113/70; PULSE 70
--- NOTE | 2020-12-25 12:27 | P.PCN ---
Date of Procedure: 12/25/20 Description of Procedure: BRIEF HISTORY: Patient is a 55-year-old, pleasant, male with a known history of gastroesophageal reflux disease and Brito's esophagus initially diagnosed in 2014 who presents for outpatient EGD for evaluation of Brito's esophagus. The patient had been off of omeprazole therapy since 2014 and was reinitiated 1 year ago and has been compliant. Previous EGD and 08/2019 was significant for Brito's esophagus with a small distal esophageal nodule which was biopsied and negative for dysplasia. The patient was told to follow up for endoscopic ultrasound but failed to do so as he reports that cost was prohibitive. PROCEDURE PERFORMED: Esophagogastroduodenoscopy with biopsy. PREOPERATIVE DIAGNOSIS: Brito's esophagus, esophageal nodule. ESTIMATED BLOOD LOSS: Minimal. IV sedation per anesthesia. PROCEDURE: After informed consent was obtained, the patient was brought into the endoscopy unit. IV sedation was administered by Anesthesia under continuous monitoring. Initially the Olympus GIF-190 video endoscope was inserted into the mouth. Esophagus intubated without any difficulty. It was gradually advanced into the stomach and duodenum and carefully examined. The bulb and the second part of the duodenum appeared normal, with biopsies taken. The scope at this time was withdrawn to the stomach, adequately insufflated with air, and upon careful examination, mucosa of the antrum, body, cardia and the fundus appeared grossly normal except for some patchy erythema in the antrum suggestive of mild antritis with biopsies of the antrum and body taken. The scope was then withdrawn into the esophagus. The GE junction was located at 39 cm from the incisors with a 2 cm hiatal hernia noted. 3 cm of salmon-colored mucosa consistent with prior history of Brito's esophagus noted in the distal esophagus which was vigorously biopsied. A small 1 cm esophageal nodule approximately 36 cm from the incisors was noted and biopsied. The esophagus otherwise appeared normal. The patient tolerated the procedure well. IMPRESSION: 1. Short Segment Brito's Esophagus. 2. Distal esophageal nodule approximately 36 cm from the incisors biopsied. 3. Small hiatal hernia. 4. Biopsies of the duodenum, antrum and body, there is esophagus and esophageal nodule. RECOMMENDATIONS: The findings of this examination were discussed with the patient and his . Okay to resume diet and medications. Continue omeprazole therapy. Await path ology from biopsies. Follow up in gastroenterology clinic as previously scheduled. Pending pathology patient may require referral to tertiary center for further intervention by the advanced endoscopy service.
== END 2020-12-25 12:30 | disposition home or self-care (01) ==
LOC: ORWHC2ENDO 10:03
PROVIDERS: ATTEND Internal Medicine
DX: K22.70 Barrett's esophagus without dysplasia (principal); K21.9 Gastro-esophageal reflux disease without esophagitis; K44.9 Diaphragmatic hernia without obstruction or gangrene; M24.60 Ankylosis, unspecified joint; Z87.19 Personal history of other diseases of the digestive system; Z87.891 Personal history of nicotine dependence; Z79.899 Other long term (current) drug therapy; Z79.891 Long term (current) use of opiate analgesic; Z79.82 Long term (current) use of aspirin; Z98.890 Other specified postprocedural states; Z91.19 Patient's noncompliance with other medical treatment and regimen
CPT/HCPCS: 88305; 43239; J2001; J2704